=== PATIENT | male | born 1995 | race American Indian/Alaskan Native ===

== ENCOUNTER 2018-01-15 09:59 | Inpatient (IN) | payer SELFPAY ==
--- NOTE | 2018-01-15 10:23 | ED PDOC ---
Arrival/HPI - General Historian: Patient, Police <Ridge Meza - Last Filed: 01/15/18 14:59> <Susanne Ortega - Last Filed: 01/15/18 15:49> - General Time Seen by Provider: 01/15/18 10:14 - History of Present Illness Narrative History of Present Illness (Text): 01/15/18 10:20 22 y/o male, very non-compliant patient in the ER, psychiatric history admits drug abuse, limited HPI can be performed, bib police under arrest but needs psychiatric evaluation as the patient acting bizzare and agitated. Pt. stated in the ER, agitated when asking him questions, stated that he feels well, no homicidal or suicidal ideation, no auditory or visual hallucination. Pt. has no homicidal/suicidal ideation, no fall or trauma, no auditory or visual hallucination, no rash, no dizziness, no medical complaints. (Ridge Meza) Past Medical History - Provider Review Nursing Documentation Reviewed: Yes <Ridge Meza - Last Filed: 01/15/18 14:59> Family/Social History - Physician Review Nursing Documentation Reviewed: Yes Family/Social History: Unknown Family HX <Ridge Meza - Last Filed: 01/15/18 14:59> Allergies/Home Meds <Ridge Meza - Last Filed: 01/15/18 14:59> <Susanne Ortega - Last Filed: 01/15/18 15:49> Allergies/Adverse Reactions: Allergies No Known Allergies Allergy (Verified 01/15/18 12:34) Home Medications: Home Meds Medication Instructions Recorded Confirmed No Known Home Med 01/15/18 01/15/18 Review of Systems - Review of Systems Constitutional: absent: Fatigue, Fevers Eyes: absent: Vision Changes Respiratory: absent: SOB, Cough Cardiovascular: absent: Chest Pain Gastrointestinal: absent: Abdominal Pain, Nausea, Vomiting Musculoskeletal: absent: Arthralgias, Back Pain Skin: absent: Rash, Pruritis Neurological: absent: Headache Psychiatric: absent: Anxiety, Depression <Ridge Meza - Last Filed: 01/15/18 14:59> Physical Exam Temperature: Afebrile Blood Pressure: Normal Pulse: Tachycardic Respiratory Rate: Normal Appearance: Positive for: Comfortable Pain Distress: None Mental Status: Positive for: Alert and Oriented X 3, Agitated - Systems Exam Head: Present: Atraumatic, Normocephalic Pupils: Present: PERRL Extroacular Muscles: Present: EOMI Conjunctiva: Present: Normal Mouth: Present: Moist Mucous Membranes Neck: Present: Normal Range of Motion Respiratory/Chest: Present: Clear to Auscultation, Good Air Exchange. No: Respiratory Distress, Accessory Muscle Use Cardiovascular: Present: Regular Rate and Rhythm, Normal S1, S2. No: Murmurs Abdomen: No: Tenderness, Distention, Peritoneal Signs Back: Present: Normal Inspection Upper Extremity: Present: Normal Inspection. No: Cyanosis, Edema Lower Extremity: Present: Normal Inspection. No: Edema Neurological: Present: GCS=15, Speech Normal, Motor Func Grossly Intact, Gait Normal, Memory Normal Skin: Present: Warm, Dry, Normal Color. No: Rashes Psychiatric: Present: Alert, Oriented x 3, Normal Insight, Normal Concentration <Ridge Meza Q - Last Filed: 01/15/18 14:59> Vital Signs Temp Pulse Resp BP Pulse Ox 01/15/18 12:50 98 F 116/73 01/15/18 12:17 98 F 85 19 116/72 98 01/15/18 10:12 98.2 F 102 H 20 118/74 99 Medical Decision Making - Lab Interpretations I have reviewed the lab results: Yes - RAD Interpretation Hat Former: Radiologist - EKG Interpretation Interpreted by ED Physician: Yes Type: 12 lead EKG <Ridge Meza - Last Filed: 01/15/18 14:59> <Susanne Ortega - Last Filed: 01/15/18 15:49> ED Course and Treatment: 01/15/18 10:23 -labs/ua/uds -ekg -cxr -PES notified 01/15/18 11:31 -EKG: NSR @ 94 BPM, no ST elevation or depression, T wave inversion on lead V4 -Chest xray no active disease -Labs show no acute findings -CK 4546, 1000cc bolus ordered with 500cc/hr with 1000cc bag ordered -UA show no UTI -UDS show cannabinoid -PES Fidelia evaluated the patient, discussed with the psychiatrist telephone ad taker today, will need [facility] evaluation. 01/15/18 11:46 -Hospitalist paged for admission. 04/14/18 12:13 -I spoke to the hospitalist Dr. Malone, discussed about the case/labs/radiology result, agreed to admit the patient. (Ridge Meza) - Lab Interpretations Lab Results: 01/15/18 10:20 01/15/18 10:20 Lab Results 01/15/18 10:20: WBC 6.8, RBC 4.03, Hgb 12.8 L, Hct 37.0 L, MCV 91.8, MCH 31.8, MCHC 34.6, RDW 12.3, Plt Count 266, MPV 8.7, Gran % 49.6 L, Lymph % (Auto) 39.7 H, Gage % (Auto) 10.2 H, Eos % (Auto) 0.4 L, Baso % (Auto) 0.1, Gran # 3.36, Lymph # (Auto) 2.7, Gage # (Auto) 0.7 H, Eos # (Auto) 0.0, Baso # (Auto) 0.01 01/15/18 10:20: Salicylates < 1 L, Acetaminophen < 10.0 L 01/15/18 10:20: Urine Opiates Screen Negative, Urine Methadone Screen Negative, Ur Barbiturates Screen Negative, Ur Phencyclidine Scrn Negative, Ur Amphetamines Screen Negative, U Benzodiazepines Scrn Negative, U Oth Cocaine Metabols Negative, U Cannabinoids Screen Positive H 01/15/18 10:20: Sodium 141, Potassium 3.7, Chloride 105, Carbon Dioxide 24, Anion Gap 16, BUN 10, Creatinine 0.9, Est GFR ( Amer) > 60, Est GFR (Non- Af Amer) > 60, Random Glucose 78, Calcium 9.3, Total Bilirubin 0.6, AST 52, ALT 23, Alkaline Phosphatase 61, Total Creatine Kinase 4546 H, CK-MB (CK-2) 1.7, CK- MB (CK-2) % Cancelled, Total Protein 7.5, Albumin 4.5, Globulin 3.0, Albumin/ Globulin Ratio 1.5 01/15/18 10:20: Urine Color Yellow, Urine Appearance Clear, Urine pH 6.5, Ur Specific [place] 1.015, Urine Protein Negative, Urine Glucose (UA) Negative, Urine Ketones Trace H, Urine Blood Negative, Urine Nitrate Negative, Urine Bilirubin Negative, Urine Urobilinogen 1.0 H, Ur Leukocyte Esterase Negative - RAD Interpretation Radiology Orders: 01/15/18 10:25 CHEST PORTABLE [RAD] Stat HISTORY: medical clearance COMPARISON: None available FINDINGS: LUNGS: No active pulmonary disease. PLEURA: No significant pleural effusion identified, no pneumothorax apparent. CARDIOVASCULAR: Normal. OSSEOUS STRUCTURES: No significant abnormalities. VISUALIZED UPPER ABDOMEN: Normal. OTHER FINDINGS: None. IMPRESSION: No active disease. (Ridge Meza) - EKG Interpretation EKG Interpretation (Text): 01/15/18 11:31 EKG: NSR @ 94 BPM, no ST elevation or depression, T wave inversion on lead V4 ( Ridge Meza) - Medication Orders Current Medication Orders: Sodium Chloride (Sodium Chloride 0.9%) 1,000 mls @ 500 mls/hr IV .Q2H KALYAN Last Admin: 01/15/18 12:42 Dose: 500 mls/hr eMAR Start Stop Document 01/15/18 12:42 GMI (Rec: 01/15/18 12:42 GMI [id number]) Intravenous Solution Start Date 01/15/18 Start Time 12:42 Sodium Chloride (Sodium Chloride 0.9%) 1,000 mls @ 250 mls/hr IV .Q4H KALYAN Lorazepam (Ativan) 3 mg IVP Q4H PRN; Protocol PRN Reason: Agitation Pantoprazole Sodium (Protonix Inj) 40 mg IVP DAILY KALYAN Discontinued Medications Sodium Chloride (Sodium Chloride 0.9%) 1,000 mls @ 999 mls/hr IV .Q1H1M STA Stop: 01/15/18 12:30 Last Admin: 01/15/18 12:03 Dose: 999 mls/hr eMAR Start Stop Document 01/15/18 12:03 EWO (Rec: 01/15/18 12:03 [id number] Intravenous Solution Start Date 01/15/18 Start Time 12:03 End Date 01/15/18 End time 13:03 Total Infusion Time 60 Pneumococcal Polyvalent Vaccine (Pneumovax 23 Vaccine) 0.5 ml IM .ONCE ONE Stop: 01/15/18 13:53 - PA / SENIOR DATA MINING ANALYST / Resident Statement LORAINE has reviewed & agrees with the documentation as recorded. <Ridge Meza - Last Filed: 01/15/18 14:59> - PA / SENIOR DATA MINING ANALYST / Resident Statement MD/DO has reviewed & agrees with the documentation as recorded. <Susanne Ortega - Last Filed: 01/15/18 15:49> Disposition/Present on Arrival - Present on Arrival Any Indicators Present on Arrival: No History of DVT/PE: No History of Uncontrolled Diabetes: No Urinary Catheter: No History of Decub. Ulcer: No - Disposition Have Diagnosis and Disposition been Completed?: Yes Disposition Time: 11:13 Patient Plan: Admission <Ridge Meza - Last Filed: 01/15/18 14:59> <Susanne Ortega - Last Filed: 01/15/18 15:49> - Disposition Diagnosis: Psychiatric care, Rhabdomyolysis, Agitation Disposition: HOSPITALIZED Patient Problems: Current Active Problems Problem Status Onset Agitation Acute Psychiatric care Acute Rhabdomyolysis Acute Condition: STABLE
[2018-01-15 10:35] LABS: PH,URINE 6.5 (4.7-8.0); URINE BILIRUBIN NEGATIVE (NEGATIVE); URINE BLOOD NEGATIVE (NEGATIVE); URINE GLUCOSE (UA) NEGATIVE (NEGATIVE); URINE LEUKOCYTE ESTERASE NEGATIVE Leu/uL (NEGATIVE); URINE PROTEIN NEGATIVE mg/dL (<30 mg/dL)
[2018-01-15 10:36] LABS: URINE APPEARANCE CLEAR (CLEAR); URINE COLOR YELLOW (YELLOW)
[2018-01-15 10:39] LABS: BASO # 0.01 K/mm3 (0.0-2.0); BASO % 0.1 % (0.0-3.0); EOS % 0.4 % (1.5-5.0); GRAN # 3.36 (1.4-6.5); GRAN % 49.6 % (50.0-68.0); HEMOGLOBIN 12.8 g/dL (14.0-18.0); LYMPH # 2.7 (1.2-3.4); LYMPH % 39.7 % (22.0-35.0); MEAN CELL VOLUME 91.8 fl (80.0-105.0); MEAN CORPUSCULAR HEMOGLOBIN 31.8 pg (25.0-35.0); MEAN CORPUSCULAR HGB CONC 34.6 g/dl (31.0-37.0); MEAN PLATELET VOLUME 8.7 fl (7.0-11.0); MONO # 0.7 (0.1-0.6); MONO % 10.2 % (1.0-6.0); RBC 4.03 10^6/uL (3.5-6.1); RED CELL DISTRIBUTION WIDTH 12.3 % (11.5-14.5); WHITE BLOOD COUNT 6.8 10^3/ul (4.5-11.0)
[2018-01-15 10:45] LABS: ACETAMINOPHEN < 10.0 ug/ml (10.0-20.0); SALICYLATE < 1 mg/dL (2.0-20.0)
[2018-01-15 10:46] LABS: ALB/GLOB RATIO 1.5 (1.1-1.8); ALBUMIN 4.5 g/dL (3.0-4.8); ALT/SGPT 23 U/L (7-56); AST/SGOT 52 U/L (17-59); BLOOD UREA NITROGEN 10 mg/dL (7-21); CALCIUM 9.3 mg/dL (8.4-10.5); GFR AFRICAN-AMERICAN > 60; GFR NON-AFRICAN AMERICAN > 60
[2018-01-15 11:05] LABS: BARBITURATES, UR NEGATIVE (NEGATIVE); BENZODIAZEPINES, UR NEGATIVE (NEGATIVE); OPIATES, UR NEGATIVE (NEGATIVE); PHENCYCLIDINE, UR NEGATIVE (NEGATIVE)
[2018-01-15] MEDS ORDERED: Sodium Chloride 0.9% 1,000 ML IV STA (11:30)
--- NOTE | 2018-01-15 11:37 | RAD ---
HISTORY: medical clearance COMPARISON: None available FINDINGS: LUNGS: No active pulmonary disease. PLEURA: No significant pleural effusion identified, no pneumothorax apparent. CARDIOVASCULAR: Normal. OSSEOUS STRUCTURES: No significant abnormalities. VISUALIZED UPPER ABDOMEN: Normal. OTHER FINDINGS: None. IMPRESSION: No active disease.
[2018-01-15 11:53] LABS: CK-MB 1.7 ng/mL (0.0-3.6)
[2018-01-15] MEDS: Sodium Chloride 0.9% 1,000 ML IV SCH ×4 (12:42→16:42)
--- NOTE | 2018-01-15 13:00 | CP.PCM.HP ---
<Anthony Orozco - Last Filed: 01/15/18 12:51> History of Present Illness - History of Present Illness History of Present Illness: IM H&P for Hospitalist Service CC: Naveed Torrez is a 22 yo AA M with known PMH of Paranoid Schizophrenia and substance abuse who was brought in by [place] Police for PES assessment due to bizarre behavior. Pt is currently under arrest due to reported mugging and robbery as per police. HPI and PE are extremely limited, and ROS unobtainable due to patient's refusal to answer any questions or participate in physical exam. He only states, "Go away, go away," and when asked why he won't talk to examiner, replies "Because I'm trying to sleep, go away!" As per ED and Police, pt reported hx of speedball (coccaine and heroin use), last used 2 days prior. UDS in ED notable only for marijuana. Labs only notable for a CPK of > 4500, but normal renal function, and wnl potassium. EKG notable for normal intervals , questionable incomplete RBBB vs poor lead placement; no gross ST elevations/ depressions. PMH: only known is Paranoid Schizophrenia and substance abuse PSH: unobtainable Soc Hx: possibly homeless, known substance abuser, admitted to police speedball use (last 2 days ago), UDS positive for marijuana Fam Hx: unobtainable PMD: None Present on Admission - Present on Admission Any Indicators Present on Admission: No History of DVT/PE: No History of Uncontrolled Diabetes: No Urinary Catheter: No Review of Systems - Review of Systems Systems not reviewed;Unavailable: Uncooperative Past Patient History - Infectious Disease Hx of Infectious Diseases: None - Past Social History Smoking Status: Unknown If Ever Smoked - CARDIAC Hx Cardiac Disorders: No - NEUROLOGICAL Hx Neurological Disorder: No - RENAL Hx Chronic Kidney Disease: No - ENDOCRINE/METABOLIC Hx Endocrine Disorders: No - INTEGUMENTARY Hx Dermatological Problems: No - GASTROINTESTINAL Hx Gastrointestinal Disorders: No - GENITOURINARY/GYNECOLOGICAL Hx Genitourinary Disorders: No - PSYCHIATRIC Hx Substance Use: Yes - SURGICAL HISTORY Hx Surgeries: No - ANESTHESIA Hx Anesthesia: No Meds Allergies/Adverse Reactions: Allergies Allergy/AdvReac Type Severity Reaction Status Date / Time No Known Allergies Allergy Verified 01/15/18 12:34 Physical Exam - Additional Findings Additional findings: Full Physical exam unobtainable due to patient refusal to participate Awake and alert, tracking staff throughout room visually Restless and constantly shaking, but no gross tremor or seizure-like activity appreciated No scleral icterus or conjunctival injection appreciated No grossly tachypnic or gasping for air Attempting to move all extremities spontaneously, restricted due to handcuffed to bed No gross trauma appreciated, Head is NC/AT No asymmetrical tone of extremities appreciated, no gross signs of wasting Results - Vital Signs Recent Vital Signs: Last Vital Signs Temp 98 F 01/15/18 12:50 Pulse 85 01/15/18 12:17 Resp 19 01/15/18 12:17 BP 116/73 01/15/18 12:50 Pulse Ox 98 01/15/18 12:17 - Labs Result Diagrams: 01/15/18 10:20 01/15/18 10:20 Assessment & Plan - Assessment and Plan (Free Text) Assessment: This is a 22 yo AA M with known PMH of Paranoid Schizophrenia and substance abuse who was brought in by [employer] for PES assessment due to bizarre behavior. He is being admitted for rhabdomyolysis while pending PES screening; he is also under arrest by [employer] for robbery. Plan: 1) Rhabdomyolysis -2/2 substance abuse vs dehydration vs trauma vs unclear etiology -CPK: 4546 -gross physical exam not notable for trauma, but unable to perform full survey due to pt refusal to allow physical exam -reports recent speedball (heroin and cocaine) use, 2 days prior, but only marijuana positive on UDS -BUN/Cr 10/0.9, not suggestive of gross dehydration, and doesn't appear clinically dehydrated -received 1L NS bolus in ED, now receiving another 1L at 500cc/hr, can continue at 250cc/hr afterwards -potassium low normal at 3.7, Cr wnl, and EKG not suggestive of acute issue, so doesn't need telemetry monitoring at this time or serial BMPs; can recheck labs in AM and obtain EKG at that time -I's and O's to monitor urine output, if becomes oliguric/anuric can consider stat labs to assess renal function and potassium at that time -Renal diet -Repeat CPK in AM to reassess, ensure down-trending, goal for d/c < 2000 2) Hx Paranoid schizophrenia with hx substance abuse -brought by police to [facility] for PES screen due to bizzare behavior -reportedly seen here in 5B unit previously, unclear what medications discharged on since no prior records found in charting -Psych (Dr. Garcia) consulted, appreciate their recs, defer to them for medication management -Ativan 3mg IVP q4 PRN for agitation pending Psych recs -unclear if SI/HI, but given recent reported violent behavior (mugging/robbery) and prior psych hx, 1:1 for obs ordered Dispo: Med/Surg obs, pending recheck of CPK in AM after aggressive IV hydration , pending Psych eval and recs, possible d/c tmr FEN: Renal Diet, NS 250cc/hr Access: Peripheral IV Consults: Psych Ppx: Protonix for GI, SCDs for DVT Patient reviewed and discussed with attending, Dr. Malone. Decision To Admit - Pt Status Changed To: Hospital Disposition Of: Observation - . Bed Request Type: Med/Surg <My Malone - Last Filed: 01/15/18 14:58> Results - Vital Signs Recent Vital Signs: Last Vital Signs Temp 98 F 01/15/18 13:24 Pulse 102 H 01/15/18 13:24 Resp 20 01/15/18 13:24 BP 116/73 01/15/18 13:24 Pulse Ox 98 01/15/18 12:17 - Labs Result Diagrams: 01/15/18 10:20 01/15/18 10:20 Attending/Attestation - Attestation I have personally seen and examined this patient.: Yes I have fully participated in the care of the patient.: Yes I have reviewed all pertinent clinical information: Yes Notes (Text): 01/15/18 14:54 22 year old male with past medical history of paranoid schizophrenia and substance abuse who is brought in by police for bizzare behavior. He was found to have rhabdomyolysis with CPK of 4546 and started on IVF. Utox is positive for cannabinoids. Continue with 1:1 for observation. Psychiatry evaluation is requested. Will continue with fluids and repeat labs in AM. My Malone MD Hospitalist.
[2018-01-15] MEDS ORDERED: Sodium Chloride 0.9% 1,000 ML IV SCH (13:15)
[2018-01-15 13:51] VITALS: BMI 22.1
[2018-01-15] MEDS ORDERED: Pneumococcal 23-Valent Vaccine IM ONE (13:52)
[2018-01-16] MEDS: Sodium Chloride 0.9% 1,000 ML IV SCH ×2 (01:45→17:40)
[2018-01-16 07:11] LABS: BASO # 0.01 K/mm3 (0.0-2.0); BASO % 0.2 % (0.0-3.0); EOS # 0.1 (0.0-0.7); GRAN # 1.44 (1.4-6.5); GRAN % 33.7 % (50.0-68.0); LYMPH # 2.2 (1.2-3.4); LYMPH % 51.2 % (22.0-35.0); MEAN CELL VOLUME 93.4 fl (80.0-105.0); MEAN CORPUSCULAR HEMOGLOBIN 31.6 pg (25.0-35.0); MEAN CORPUSCULAR HGB CONC 33.8 g/dl (31.0-37.0); MEAN PLATELET VOLUME 8.6 fl (7.0-11.0); MONO # 0.5 (0.1-0.6); MONO % 11.9 % (1.0-6.0); RBC 3.48 10^6/uL (3.5-6.1); RED CELL DISTRIBUTION WIDTH 12.5 % (11.5-14.5); WHITE BLOOD COUNT 4.3 10^3/ul (4.5-11.0)
[2018-01-16 07:17] LABS: TROPONIN I < 0.01 ng/mL
[2018-01-16 07:24] LABS: ALB/GLOB RATIO 1.2 (1.1-1.8); ALBUMIN 3.2 g/dL (3.0-4.8); ALT/SGPT 22 U/L (7-56); AST/SGOT 44 U/L (17-59); BLOOD UREA NITROGEN 12 mg/dL (7-21); CALCIUM 8.3 mg/dL (8.4-10.5); GFR AFRICAN-AMERICAN > 60; GFR NON-AFRICAN AMERICAN > 60
[2018-01-16 08:17] LABS: CK-MB 0.8 ng/mL (0.0-3.6)
--- NOTE | 2018-01-16 09:12 | CARD ---
APPROVED REPORT EKG Measurement Heart [id number] <Conclusion> Normal sinus rhythm with sinus arrhythmia Incomplete right bundle branch block Nonspecific T wave abnormality LVH by voltage
--- NOTE | 2018-01-16 09:26 | CARD ---
APPROVED REPORT EKG Measurement Heart [id number] <Conclusion> Normal sinus rhythm with sinus arrhythmia LVH NSSTW changes No change
--- NOTE | 2018-01-16 16:33 | CP.PCM.PN ---
Subjective - Date & Time of Evaluation Date of Evaluation: 01/16/18 Time of Evaluation: 16:30 - Subjective Subjective: Patient seen and examined at bedside. 1 to 1 sitter in room, patient with two point restraints in place. Patient with minimal answering to interview questions. Denies chest pain, shortness of breath, abdominal pain, fever, chills. Denies suicidal ideation. Objective - Vital Signs/Intake and Output Vital Signs (last 24 hours): Temp Pulse Resp BP Pulse Ox 97.9 F 88 20 120/71 96 01/15/18 22:00 01/15/18 22:00 01/15/18 22:00 01/15/18 22:00 01/15/18 22:00 Intake and Output: 01/16/18 01/16/18 06:59 18:59 Intake Total 240 1500 Output Total 275 1850 Balance -35 -350 - Medications Medications: Current Medications Sodium Chloride (Sodium Chloride 0.9%) 1,000 mls @ 500 mls/hr IV .Q2H [facility] Last Admin: 01/15/18 16:42 Dose: Not Given Sodium Chloride (Sodium Chloride 0.9%) 1,000 mls @ 250 mls/hr IV .Q4H [facility] Last Admin: 01/16/18 01:45 Dose: 250 mls/hr Lorazepam (Ativan) 2 mg IVP Q6H PRN; Protocol PRN Reason: Agitation Pantoprazole Sodium (Protonix Inj) 40 mg IVP DAILY [facility] Last Admin: 01/16/18 10:03 Dose: 40 mg Quetiapine Fumarate (Seroquel) 25 mg PO BID [facility] PRN Reason: Protocol Quetiapine Fumarate (Seroquel) 50 mg PO HS [facility] PRN Reason: Protocol - Labs Labs: 01/16/18 06:00 01/16/18 06:00 - Head Exam Head Exam: ATRAUMATIC, NORMAL INSPECTION, NORMOCEPHALIC - Eye Exam Eye Exam: EOMI, PERRL - Respiratory Exam Respiratory Exam: absent: Accessory Muscle Use, Prolonged Expiratory Phase, Wheezes Additional comments: patient refusing exam respiratory rate 21, non agitated - Cardiovascular Exam Additional comments: patient refusing exam, HR normal range per chart - GI/Abdominal Exam Additional comments: refused exam - Extremities Exam Extremities Exam: absent: Pedal Edema, Tenderness - Neurological Exam Neurological Exam: Alert, Awake - Psychiatric Exam Psychiatric exam: Agitated - Skin Skin Exam: Dry, Warm Assessment and Plan - Assessment and Plan (Free Text) Assessment: 22 yo AA male with known PMH of Paranoid Schizophrenia and substance abuse who was brought in by [place] [employer] for PES assessment due to bizarre behavior. Patient found to have elevated CPK and admitted for rhabdomyolysis Plan: Rhabdomyolysis Details: - Etiology substance abuse vs. dehydration vs. trauma - Patient denies traums, reports recent heroin and cocaine use 2 days prior to presentation - elevated CPK on admission 4546, today ~2500 - IVF 1 Liter NS in ED, IVF continuous Plan: - Renal diet - I and O's - Trend CPK - IVF continued - F/u labs Paranoid Schizophrenia with history of substance abuse Details: - History of psych problems in past - Pt denies SI/HI today - Unknown visual or auditory hallucinations - UDS positive for cannabinoids Plan: - Psych consulted, f/u recs - Seroguel - Ativan 2mg IVP Q6H for agitation - Continue 1:1 observation GI/DVT ppx: Protonix, SCDs Case and plan discussed with attending, Dr. Faisal Madera/ Chip
--- NOTE | 2018-01-16 23:36 | CON ---
HISTORY OF PRESENT ILLNESS: The patient is a 22-year-old single -Romanian male with a history of drug abuse and unclear psychiatric history. He was brought into the ER by police under arrest for mugging and robbery. Noted to be agitated and uncooperative while he was in the ER and the provider had recommended the patient to be cleaned by [facility], however, he ended up being medically admitted due to elevated CPK level. I reviewed ER notes as well as [address] notes [address] Dr. Malone, it does looks like Dr. Malone received information that the patient has a history of paranoid schizophrenia; however, this information was not available to this provider. I reviewed [facility] access records and he has not been seen or hospitalized at a [facility] on prior occasions,. It was possible that he is hospitalized at [facility] at [facility] in the past; however, I do not have access to these records any longer. Regardless, I met with him at bedside this morning and he is a little bit more cooperative and calm and although he is reluctant to engage in a conversation with me and I need to repeat my question multiple times. He is oddly related. He does not appear to be actively hallucinating. He is enjoying his breakfast is taking with him. He denies depression. He denies hallucinations. He tells me he is doing well. He knows it is January 2018, he is under arrest, and he is at [facility]. He denies having any thoughts to harm anybody or harm himself. Thus far, he has been cooperative with medical procedures. He is not acutely psychotic, though as noted he is oddly related, preoccupied, and a little bit guarded with his responses. Currently, handcuffs to the bed per police orders due to being currently under arrest robbery. Labs and vital signs were reviewed by this provider. Of note, the patient's UDS is only positive for marijuana, although it is possible that it was a substance that does not show up on drug screening, which has been the case very recently in [place] with formaldehyde. PSYCHIATRIC HISTORY: Largely unknown, the patient is reluctant in regards his psychiatric history, but admits that he did see a psychiatrist in the past. In regarding psychiatric hospitalizations, he used to be mysterious and states "not sure". Denies prior suicide attempts and cannot recall if he has even been on any medication trial. SOCIAL HISTORY: The patient reports he was born and raised in [place], he is single, he has no children. He lives with a roommate. He denies substance use, however, this is untrue as his UDS is positive for marijuana and he reports that he currently is unemployed. Of note, he is currently under arrest for robbery and mugging. IMPRESSION: Paranoid schizophrenia by history, rule out exacerbation of substance-induced psychiatric disorder, substance-induced mood disorder. The patient definitely abuses marijuana, I cannot rule out this was not related to formaldehyde, a substance that would not show up on typical direct screening. RECOMMENDATIONS: The patient is apparently in much better control, though oddly related, he does not present as an acute psychiatric risk if he is booked into longterm at this time and in that case, he is psychiatrically cleared once he is medically cleared to go to longterm; however, as he is no longer under arrest, I do recommend psychiatric admission. This will be beneficial for him, but as right now since he is currently under arrest and he is not causing any difficulty on the unit, he is much less agitated, calmer, superficially cooperating in interviews and medical protocol, there appears to be no major risks at this time. The robbery and mugging are not indicative of paranoid schizophrenic general operandi, they generally are indicative as antisocial types and I cannot comment on when antisocial will do, but he likely did not mug or sony somebody because he was under some sort of paranoid delusions. He does not present acutely delusional at this time, though I cannot rule out very insignificant chance that this is the case. Psychiatrist will continue to follow up, make ensure that the patient remains with improved control and coherency. Dr. Rock will follow the patient on 01/17/2018. Salbador Garcia MD
[2018-01-17] MEDS: Sodium Chloride 0.9% 1,000 ML IV SCH ×3 (03:02→17:28)
[2018-01-17 08:55] LABS: HEMOGLOBIN 11.3 g/dL (14.0-18.0); MEAN CELL VOLUME 92.6 fl (80.0-105.0); MEAN CORPUSCULAR HEMOGLOBIN 32.1 pg (25.0-35.0); MEAN CORPUSCULAR HGB CONC 34.7 g/dl (31.0-37.0); MEAN PLATELET VOLUME 9.1 fl (7.0-11.0); RBC 3.52 10^6/uL (3.5-6.1); RED CELL DISTRIBUTION WIDTH 12.2 % (11.5-14.5); WHITE BLOOD COUNT 4.7 10^3/ul (4.5-11.0)
[2018-01-17 09:05] LABS: ALB/GLOB RATIO 1.2 (1.1-1.8); ALBUMIN 3.1 g/dL (3.0-4.8); ALT/SGPT 27 U/L (7-56); AST/SGOT 32 U/L (17-59); BLOOD UREA NITROGEN 7 mg/dL (7-21); CALCIUM 8.6 mg/dL (8.4-10.5); GFR AFRICAN-AMERICAN > 60; GFR NON-AFRICAN AMERICAN > 60
[2018-01-17 09:22] LABS: CK-MB 0.4 ng/mL (0.0-3.6)
[2018-01-17] MEDS: Divalproex 500 mg DR(BID formulation) PO SCH ×2 (10:33→17:28)
[2018-01-17] MEDS: OLANZapine 5 mg Disintegrating Tab PO SCH ×3 (10:33→22:21)
--- NOTE | 2018-01-17 12:14 | CP.PCM.PN ---
<ChipMarcelino - Last Filed: 01/17/18 14:05> Subjective - Date & Time of Evaluation Date of Evaluation: 01/17/18 Time of Evaluation: 12:10 - Subjective Subjective: Patient seen and evaluated this AM. Patient refusing interview questioning and exam at this time. Patient denies chest pain, shortness of breath, abdominal pain. Objective - Vital Signs/Intake and Output Vital Signs (last 24 hours): Temp Pulse Resp BP Pulse Ox 97.9 F 53 L 19 185/82 H 98 01/17/18 06:00 01/17/18 06:00 01/17/18 06:00 01/17/18 06:00 01/17/18 06:00 Intake and Output: 01/17/18 01/17/18 06:59 18:59 Intake Total 180 Output Total 2250 Balance -2070 - Medications Medications: Current Medications Benztropine Mesylate (Cogentin) 1 mg PO BID [facility] Last Admin: 01/17/18 10:33 Dose: 1 mg Divalproex Sodium (Depakote Dr(*Bid*)) 500 mg PO BID [facility] Last Admin: 01/17/18 10:33 Dose: 500 mg Sodium Chloride (Sodium Chloride 0.9%) 1,000 mls @ 250 mls/hr IV .Q4H [facility] Last Admin: 01/17/18 03:03 Dose: 250 mls/hr Lorazepam (Ativan) 2 mg IVP Q6H PRN; Protocol PRN Reason: Agitation Lorazepam (Ativan) 1 mg PO BID [facility] PRN Reason: Protocol Last Admin: 01/17/18 10:33 Dose: 1 mg Olanzapine (Zyprexa Zydis) 5 mg PO BID [facility] PRN Reason: Protocol Last Admin: 01/17/18 10:33 Dose: 5 mg Olanzapine (Zyprexa Zydis) 5 mg PO HS [facility] PRN Reason: Protocol Pantoprazole Sodium (Protonix Inj) 40 mg IVP DAILY [facility] Last Admin: 01/17/18 09:11 Dose: Not Given - Labs Labs: 01/17/18 08:30 01/17/18 08:30 - Skin Skin Exam: Dry, Warm - Additional Findings Additional findings: Patient refusing physical exam at this time. Patient appears stated age. No acute distress. Assessment and Plan - Assessment and Plan (Free Text) Assessment: 22 yo AA male with known PMH of Paranoid Schizophrenia and substance abuse who was brought in by [place] [employer] for PES assessment due to bizarre behavior. Patient found to have elevated CPK and admitted for rhabdomyolysis Plan: Patient is medically cleared at this point for transfer per psychiatry Rhabdomyolysis Details: - Etiology substance abuse vs. dehydration vs. trauma - Patient denies traums, reports recent heroin and cocaine use 2 days prior to presentation - elevated CPK on admission 4546, ~2500, ~1300 today improvement - IVF 1 Liter NS in ED, IVF continuous - Patient showing clinical improvement Plan: - Renal diet - I and O's - IVF continued - Patient showing clinical and lab work improvement - Patient is medically cleared for transfer per psychiatry Paranoid Schizophrenia with history of substance abuse Details: - History of psych problems in past - Pt denies SI/HI today - Unknown visual or auditory hallucinations - UDS positive for cannabinoids Plan: - Psych consulted, f/u recs - Seroguel - Ativan 2mg IVP Q6H for agitation - Continue 1:1 observation GI/DVT ppx: Protonix, SCDs Case and plan discussed with attending Kofi Saunders <Spike Martinez - Last Filed: 01/17/18 17:10> Objective - Vital Signs/Intake and Output Vital Signs (last 24 hours): Temp Pulse Resp BP Pulse Ox 99 F 67 18 135/82 99 01/17/18 14:00 01/17/18 14:00 01/17/18 14:00 01/17/18 14:00 01/17/18 14:00 Intake and Output: 01/17/18 01/17/18 06:59 18:59 Intake Total 180 640 Output Total 2250 3600 Balance -2070 -2960 - Medications Medications: Current Medications Benztropine Mesylate (Cogentin) 1 mg PO BID [facility] Last Admin: 01/17/18 10:33 Dose: 1 mg Divalproex Sodium (Depakote Dr(*Bid*)) 500 mg PO BID [facility] Last Admin: 01/17/18 10:33 Dose: 500 mg Sodium Chloride (Sodium Chloride 0.9%) 1,000 mls @ 250 mls/hr IV .Q4H [facility] Last Admin: 01/17/18 03:03 Dose: 250 mls/hr Lorazepam (Ativan) 2 mg IVP Q6H PRN; Protocol PRN Reason: Agitation Lorazepam (Ativan) 1 mg PO BID [facility] PRN Reason: Protocol Last Admin: 01/17/18 10:33 Dose: 1 mg Olanzapine (Zyprexa Zydis) 5 mg PO BID [facility] PRN Reason: Protocol Last Admin: 01/17/18 10:33 Dose: 5 mg Olanzapine (Zyprexa Zydis) 5 mg PO HS [facility] PRN Reason: Protocol Pantoprazole Sodium (Protonix Inj) 40 mg IVP DAILY [facility] Last Admin: 01/17/18 09:11 Dose: Not Given - Labs Labs: 01/17/18 08:30 01/17/18 08:30 Attending/Attestation - Attestation I have personally seen and examined this patient.: Yes I have fully participated in the care of the patient.: Yes I have reviewed all pertinent clinical information, including history, physical exam and plan: Yes Notes (Text): 01/17/18 17:07 Medical record note made by the resident after discussion with my direction and input after the patient was personally seen and examined by me. I have reviewed the chart and agree that the record accurately reflects by personal performance of the history, physical exam, data review, and medical decision-making, in the course for the patient. I have also personally directed the plan of care. 22 yo AA male with known PMH of Paranoid Schizophrenia and substance abuse who was brought in by [place] [employer] for PES assessment due to bizarre behavior was found to have rhabdomyolysis.CK level is coming dowm.Renal functions are stable.Patient is cleared medically, awaiting [facility] [place]. Case was discussed with .
--- NOTE | 2018-01-17 13:26 | CP.PCM.PCO ---
Physician Communication Note - Physician Communication Note Physician Communication Note: Rhabdomylosis is improving, encourage oral hydration,cleared medically
--- NOTE | 2018-01-17 15:06 | PN ---
DATE: SUBJECTIVE: The patient was seen by Dr. Garcia, over the weekend and no medications were started. The patient was brought in for evaluation of bizarre and agitated behavior in the emergency room. The patient had signs of rhabdomyolysis and that is why the patient was admitted on the medical side. The patient presented to be oddly related and that is why psychiatrist was involved. The patient was seen by Dr. Garcia over the weekend. This senior copywriter is taking over. The patient was seen and examined. The patient is under arrest for robbery. The patient is very familiar to this senior copywriter from the previous admission and to the psychiatric inpatient unit, which took place here in [place] under the name of [place] and the patient was admitted in 07/2017. The patient has long history of mental illness, paranoid schizophrenia, chronic noncompliance with the medication, poor family dynamics. The patient was seen by PACT team in the community. The patient has dysfunctional family and multiple kids in the house. The patient has tendency of disappearing and the patient has tendency of wandering on the streets. The patient has tendency of being noncompliant to medications. Going back to the patient's presentation, the patient was agitated earlier and needed to be medicated. The patient is on one to one. Still under arrest and police is sitting outside. The patient was seen and examined. The patient is non-cooperative with the interview. No eye contact, poor hygiene. The patient seems to be restless. The patient said "I am not doing good. I do not want to talk." This senior copywriter reviewed the previous admission to the psychiatric inpatient unit and PACT team was contacted. The patient gave permission to speak to the PACT team. As per team supervisor, Bailey hoyt nurse, the patient was noncompliant with the medications and the patient got injection of Invega 3 months. The last time was given 3 weeks ago. The patient was on Depakote 1500 daily and Cogentin 1 mg twice a day. The patient was at [facility] last week, but was cleared by psychiatric bed then. PHYSICAL EXAMINATION: VITAL SIGNS: Going back to the current presentation, vital signs seems to be stable. Temperature 98.4, pulse is 71, blood pressure 126/78, respirations 20, oxygen saturation is 98. MEDICATIONS: Reviewed, Ativan, Protonix, Seroquel 25 mg twice a day, Seroquel 50 mg at the nighttime, sodium chloride. LABORATORY DATA: Reviewed. Hemoglobin and hematocrit 11.3 and 32.6. Creatine kinase is going down 1300 today. Urinalysis seems to be within normal limits, but ketones positive, cannabis positive in the urine. The patient has history of using synthetic drugs. MENTAL STATUS EXAMINATION: As this senior copywriter described above. The patient was uncooperative with the interview. Patient's personal hygiene is poor. The patient appears to be oddly related. No eye contact. Mood described "I do not feel good." Affect was flat. The patient's thoughts are disorganized. The patient reported that he has multiple people living in his head. As per staff, the patient was agitated earlier and needed to be medicated. Insight and judgment are very poor. Impulses are unpredictable. IMPRESSION: As per history, the patient has paranoid schizophrenia, chronic noncompliance with the medications. The patient has history of synthetic drug use and marijuana use. PLAN: The patient is currently under police custody for robbery. Invega shot q.3 months, last dose was given 3 weeks ago. The patient was on Depakote 1500 mg daily and Cogentin 1 mg twice a day. The patient was seen by PACT team in the community. This senior copywriter spoke to Dr. Martinez and let him know that true name for this patient is not Stanton, but Ricci. Plan is going to be screening for involuntary commitment. If the patient will be not accepted, the patient needs to be discharged under police custody with a plan to be seen by forensic psychiatrist. Meanwhile, this senior copywriter will change Seroquel to Zyprexa Zydis 5 mg three times a day, Depakote will be resumed with the Ativan. We will follow up and advise accordingly. Management of this case took more than 30 minutes. Thank you very much for letting me participate in care of your patient. Elma Rock MD
[2018-01-18] MEDS: Divalproex 500 mg DR(BID formulation) PO SCH ×2 (10:31→18:03)
[2018-01-18] MEDS: OLANZapine 5 mg Disintegrating Tab PO SCH ×3 (10:35→21:50)
[2018-01-18 11:41] VITALS: RESP 20; O2SAT 98
[2018-01-18] MEDS: Sodium Chloride 0.9% 1,000 ML IV SCH ×2 (12:24→18:04)
--- NOTE | 2018-01-18 17:04 | PN ---
DATE: But this expert medical writer would like to emphasize the fact that the patient's true name is not Stanton, but Ricci. SUBJECTIVE: The patient has long history of mental illness, chronic noncompliance with the medications and followup appointments. The patient is on injectable form of Abilify q.3 months. This expert medical writer attempted to speak to the patient's PACT team, which visited him on the medical side. The patient presented to be disorganized. Does not make much sense. The patient also not willing to provide any information and laying down with his eyes closed and covering his face with a blanket. The patient is under arrest for robbery and police officers are next to him. There are no changes with the patient's presentation. The patient is disorganized. Does not make much sense. No eye contact, poor personal hygiene. At the same time, no aggression, no agitation. The patient is compliant with the medications. PHYSICAL EXAMINATION: VITAL SIGNS: Stable. Temperature 98, pulse is 54, blood pressure 111/75, respiration 20, oxygen saturation is 98. MEDICATIONS: Reviewed. Cogentin 1 mg twice a day, Depakote 500 mg twice a day, Ativan 2 mg IV push every 6 hours as needed for agitation, Ativan 1 mg twice a day scheduled, Zyprexa Zydis 5 mg twice a day and at the nighttime, Protonix 40 mg and sodium chloride. LABORATORY DATA: Reviewed. Most recent was from yesterday. Based on the medical team report, the patient is medically stable and this expert medical writer recommended [facility] screening process. The patient is still waiting. MENTAL STATUS EXAMINATION: As this expert medical writer described above. The patient presented with poor personal hygiene. No eye contact. Speech was mumbling. Mood described as okay. Affect is labile. The patient is giggling inappropriately. At the same time, the patient has psychosis. For example, the patient was making statements that he has lot of kids, but when was asked where are the kids, the patient said that in my balls. The patient also was internally preoccupied talking to the people who are not there. Insight and judgment seems to be severely impaired. Impulses are unpredictable. This expert medical writer had prolonged conversation with the PACT team yesterday with Bailey. Based on report, the patient has chronic noncompliance with the medications. Very poor insight. PACT team needed to marlin the patient in the community because pt has no stable home, pt also has tendency of wondering in the community, not compliance with medications, and follow up appointments, pt also using drugs including synthetic drugs. PLAN: Continue current management. Continue current medications. The patient is awaiting for [facility] evaluation. The patient required further hospitalization, but the patient does not meet the criteria for voluntary unit because the patient is under arrest. If the patient will be not accepted by [facility], recommendation is going to be released under police custody with a plan to have forensic psychiatrist evaluation as well as continue medication what the patient currently is on. Zyprexa zydis 5mg twice a day as well as at the nighttime. The patient also needs to be continued on Ativan 1 mg three times a day. The patient should be continued on Depakote 500 mg twice a day. We will follow up and advise accordingly. Should you have any questions, give me a call back. Elma Rock MD MTDRashi
--- NOTE | 2018-01-18 17:12 | CP.PCM.PN ---
<Marcelino Saunders - Last Filed: 01/18/18 19:44> Subjective - Date & Time of Evaluation Date of Evaluation: 01/18/18 Time of Evaluation: 17:09 - Subjective Subjective: Patient refusing interview and physical exam at this time. no acute events overnight. Patient awaiting [facility] [place] screening[place]ance. Objective - Vital Signs/Intake and Output Vital Signs (last 24 hours): Temp Pulse Resp BP Pulse Ox 98 F 54 L 20 111/75 98 01/18/18 06:00 01/18/18 06:00 01/18/18 06:00 01/18/18 06:00 01/18/18 06:00 Intake and Output: 01/18/18 01/18/18 06:59 18:59 Intake Total 900 Output Total 4575 Balance -3675 - Medications Medications: Current Medications Benztropine Mesylate (Cogentin) 1 mg PO BID [facility] Last Admin: 01/18/18 10:31 Dose: 1 mg Divalproex Sodium (Depakote Dr(*Bid*)) 500 mg PO BID [facility] Last Admin: 01/18/18 10:31 Dose: 500 mg Sodium Chloride (Sodium Chloride 0.9%) 1,000 mls @ 250 mls/hr IV .Q4H [facility] Last Admin: 01/18/18 12:24 Dose: 250 mls/hr Lorazepam (Ativan) 2 mg IVP Q6H PRN; Protocol PRN Reason: Agitation Lorazepam (Ativan) 1 mg PO BID [facility] PRN Reason: Protocol Last Admin: 01/18/18 10:32 Dose: 1 mg Olanzapine (Zyprexa Zydis) 5 mg PO BID [facility] PRN Reason: Protocol Last Admin: 01/18/18 10:35 Dose: 5 mg Olanzapine (Zyprexa Zydis) 5 mg PO HS [facility] PRN Reason: Protocol Last Admin: 01/17/18 22:21 Dose: 5 mg Pantoprazole Sodium (Protonix Ec Tab) 40 mg PO ACB [facility] - Labs Labs: 01/17/18 08:30 01/17/18 08:30 - Additional Findings Additional findings: Patient refusing physical exam Assessment and Plan - Assessment and Plan (Free Text) Assessment: 22 yo AA male with known PMH of Paranoid Schizophrenia and substance abuse who was brought in by [place] [employer] for PES assessment due to bizarre behavior. Patient found to have elevated CPK and admitted for rhabdomyolysis Plan: Patient is medically cleared at this point for transfer per psychiatry Rhabdomyolysis Details: - Etiology substance abuse vs. dehydration vs. trauma - Patient denies traums, reports recent heroin and cocaine use 2 days prior to presentation - elevated CPK on admission 4546, ~2500, ~1300 today improvement - Patient showing clinical improvement - Patient refusing blood draws Plan: - Renal diet - I and O's - IVF continued - Patient is medically cleared for transfer per psychiatry Paranoid Schizophrenia with history of substance abuse Details: - History of psych problems in past - Pt denies SI/HI today - Unknown visual or auditory hallucinations - UDS positive for cannabinoids Plan: - Psych consulted, f/u recs - Seroguel - Ativan 2mg IVP Q6H for agitation GI/DVT ppx: Protonix, SCDs Case and plan discussed with attending Kofi Saunders <Spike Martinez - Last Filed: 01/19/18 13:50> Objective - Vital Signs/Intake and Output Vital Signs (last 24 hours): Temp Pulse Resp BP Pulse Ox 98.3 F 65 20 130/69 98 01/19/18 06:00 01/19/18 06:00 01/19/18 06:00 01/19/18 06:00 01/19/18 06:00 Intake and Output: 01/19/18 01/19/18 06:59 18:59 Intake Total 1140 840 Output Total 2475 1300 Balance -1335 -460 - Labs Labs: 01/17/18 08:30 01/17/18 08:30 Attending/Attestation - Attestation I have personally seen and examined this patient.: Yes I have fully participated in the care of the patient.: Yes I have reviewed all pertinent clinical information, including history, physical exam and plan: Yes Notes (Text): 01/19/18 13:49 Medical record note made by the resident after discussion with my direction and input after the patient was personally seen and examined by me. I have reviewed the chart and agree that the record accurately reflects by personal performance of the history, physical exam, data review, and medical decision-making, in the course for the patient. I have also personally directed the plan of care. 22 yrs male with known PMH of Paranoid Schizophrenia and substance abuse who was brought in by [place] [employer] for PES assessment due to bizarre behavior was found to have rhabdomyolysis.CK level has improved. coming .Renal functions are stable.Patient is cleared medically, [place] [facility] [place].
[2018-01-18 20:15] LABS: CK-MB < 0.2 ng/mL (0.0-3.6)
[2018-01-19] MEDS ORDERED: Pantoprazole 40 mg EC Tab PO SCH (07:30)
[2018-01-19 09:08] VITALS: BP 130/69; PULSE 65; TEMP 98.3
[2018-01-19] MEDS: Divalproex 500 mg DR(BID formulation) PO SCH (09:44)
[2018-01-19] MEDS: OLANZapine 5 mg Disintegrating Tab PO SCH (09:44)
--- NOTE | 2018-01-19 13:41 | PN ---
DATE: FOLLOWUP NOTE SUBJECTIVE: The patient was evaluated by [facility], was not accepted under involuntary status. The patient is under police custody. The patient presented to feel to be psychotic, disorganized, but no aggression or agitation. Has fair appetite as well as sleep. Vital signs are stable from the medical perspective. Based on the medical evaluation, the patient is stable to be discharged back to the correctional facility. This life underwriter left prescriptions for all of his current medications, Zyprexa, Depakote, Cogentin as well as Ativan 2-week supply. The patient needs to be seen by a psychiatrist at the correctional facility. Meanwhile, there is no other option to keep the patient to the hospital. The patient needs to go back to longterm under police custody. MENTAL STATUS EXAMINATION: The patient presented to be disorganized, apathetic, withdrawn, not willing to participate in interview, but the patient is internally preoccupied, responding to internal stimuli. Insight and judgment are poor. Impulses are well controlled. IMPRESSION: As per history, schizoaffective disorder, rule out schizophrenia. The patient has history of polysubstance abuse and dependence including synthetic drug use. PLAN: Prescriptions for all of the psychotropic medications provided to the patient, 2-week supply, no refills. The patient needs to be seen by psychiatrist in the correctional facility. The patient is to take medication as prescribed. This life underwriter will sign off. Should you have any questions, give me a call back. Elma Rock MD
--- NOTE | 2018-01-19 13:51 | CP.PCM.DIS ---
<Marcelino Saunders - Last Filed: 01/19/18 20:29> Provider - Provider Date of Admission: 01/16/18 16:27 Attending physician: Spike Martinez MD Primary care physician: NO PRIMARY CARE PROVIDER Consults: Psych: Dr. Wills Time Spent in preparation of Discharge (in minutes): 35 Hospital Course - Lab Results Lab Results: Most Recent Lab Values WBC 4.7 10^3/ul (4.5-11.0) 01/17/18 08:30 RBC 3.52 10^6/uL (3.5-6.1) 01/17/18 08:30 Hgb 11.3 g/dL (14.0-18.0) L 01/17/18 08:30 Hct 32.6 % (42.0-52.0) L 01/17/18 08:30 MCV 92.6 fl (80.0-105.0) 01/17/18 08:30 MCH 32.1 pg (25.0-35.0) 01/17/18 08:30 MCHC 34.7 g/dl (31.0-37.0) 01/17/18 08:30 RDW 12.2 % (11.5-14.5) 01/17/18 08:30 Plt Count 229 10^3/uL (120.0-450.0) 01/17/18 08:30 MPV 9.1 fl (7.0-11.0) 01/17/18 08:30 Gran % 33.7 % (50.0-68.0) L 01/16/18 06:00 Lymph % (Auto) 51.2 % (22.0-35.0) H 01/16/18 06:00 [place] % (Auto) 11.9 % (1.0-6.0) H 01/16/18 06:00 Eos % (Auto) 3.0 % (1.5-5.0) 01/16/18 06:00 Baso % (Auto) 0.2 % (0.0-3.0) 01/16/18 06:00 Gran # 1.44 (1.4-6.5) 01/16/18 06:00 Lymph # (Auto) 2.2 (1.2-3.4) 01/16/18 06:00 [place] # (Auto) 0.5 (0.1-0.6) 01/16/18 06:00 Eos # (Auto) 0.1 (0.0-0.7) 01/16/18 06:00 Baso # (Auto) 0.01 K/mm3 (0.0-2.0) 01/16/18 06:00 Sodium 143 mmol/L (132-148) 01/17/18 08:30 Potassium 3.8 mmol/L (3.6-5.0) 01/17/18 08:30 Chloride 112 mmol/L (98-107) H 01/17/18 08:30 Carbon Dioxide 23 mmol/L (21-33) 01/17/18 08:30 Anion Gap 11 (10-20) 01/17/18 08:30 BUN 7 mg/dL (7-21) 01/17/18 08:30 Creatinine 0.8 mg/dl (0.8-1.5) 01/17/18 08:30 Est GFR ( Amer) > 60 01/17/18 08:30 Est GFR (Non-Af Amer) > 60 01/17/18 08:30 Random Glucose 94 mg/dL (70-110) 01/17/18 08:30 Calcium 8.6 mg/dL (8.4-10.5) 01/17/18 08:30 Phosphorus 3.4 mg/dL (2.5-4.5) 01/16/18 06:00 Magnesium 1.8 mg/dL (1.7-2.2) 01/16/18 06:00 Total Bilirubin 0.3 mg/dL (0.2-1.3) 01/17/18 08:30 AST 32 U/L (17-59) 01/17/18 08:30 ALT 27 U/L (7-56) 01/17/18 08:30 Alkaline Phosphatase 44 U/L (38-126) 01/17/18 08:30 Lactate Dehydrogenase 547 U/L (333-699) 01/16/18 06:00 Total Creatine Kinase 616 U/L (35-230) H 01/18/18 19:35 CK-MB (CK-2) < 0.2 ng/mL (0.0-3.6) 01/18/18 19:35 CK-MB (CK-2) % Cancelled 01/15/18 10:20 Troponin I < 0.01 ng/mL 01/16/18 06:00 Total Protein 5.7 g/dL (5.8-8.3) L 01/17/18 08:30 Albumin 3.1 g/dL (3.0-4.8) 01/17/18 08:30 Globulin 2.5 gm/dL 01/17/18 08:30 Albumin/Globulin Ratio 1.2 (1.1-1.8) 01/17/18 08:30 Urine Color Yellow (YELLOW) 01/15/18 10:20 Urine Appearance Clear (CLEAR) 01/15/18 10:20 Urine pH 6.5 (4.7-8.0) 01/15/18 10:20 Ur Specific [place] 1.015 (1.005-1.035) 01/15/18 10:20 Urine Protein Negative mg/dL (<30 mg/dL) 01/15/18 10:20 Urine Glucose (UA) Negative mg/dL (NEGATIVE) 01/15/18 10:20 Urine Ketones Trace mg/dL (NEGATIVE) H 01/15/18 10:20 Urine Blood Negative (NEGATIVE) 01/15/18 10:20 Urine Nitrate Negative (NEGATIVE) 01/15/18 10:20 Urine Bilirubin Negative (NEGATIVE) 01/15/18 10:20 Urine Urobilinogen 1.0 E.U./dL (<1 E.U./dL) H 01/15/18 10:20 Ur Leukocyte Esterase Negative Vern/uL (NEGATIVE) 01/15/18 10:20 Salicylates < 1 mg/dL (2.0-20.0) L 01/15/18 10:20 Urine Opiates Screen Negative (NEGATIVE) 01/15/18 10:20 Urine Methadone Screen Negative (NEGATIVE) 01/15/18 10:20 Acetaminophen < 10.0 ug/ml (10.0-20.0) L 01/15/18 10:20 Ur Barbiturates Screen Negative (NEGATIVE) 01/15/18 10:20 Ur Phencyclidine Scrn Negative (NEGATIVE) 01/15/18 10:20 Ur Amphetamines Screen Negative (NEGATIVE) 01/15/18 10:20 U Benzodiazepines Scrn Negative (NEGATIVE) 01/15/18 10:20 U Oth Cocaine Metabols Negative (NEGATIVE) 01/15/18 10:20 U Cannabinoids Screen Positive (NEGATIVE) H 01/15/18 10:20 - Hospital Course Hospital Course: Patient is a 22 year old male with past medical history that includes known paranoid schizophrenia andsubstance abuse who presented to [facility] in the custody of [facility] ([facility] for PES assessment due to bizarre behavior. Patient was noted to be agitated and non cooperative with questioning and physical exam upon arrival. Labs were drawn on the patient. UDS showed positive for THC, blood work showed an elevated CPK >4500 with preserved renal function and normal electrolytes. The patient was admitted and treated for rhabdomyolysis. IV fluids were started and patient CPK trended. Over course of stay CPK trended downward and his renal function remained intact. Psychiatry was consulted and evaluated the patient. Patient was evaluated by PES for involuntary admission to psychiatry unit. Patient did not meet criteria and was medically cleared for discharge with normal renal function and improved CPK levels on most recent imaging. During stay patient had refused lab draws on multiple occasions. He showed clinical improvement throughout his stay and was discharged outpatient. Discharge planning, medication reconciliation, tobacco cessation education, THC cessation education was provided to patient. Patient was understanding and agreeable to information provided. - Date & Time of H&P Date of H&P: 01/15/18 Time of H&P: 12:51 Discharge Exam - Head Exam Head Exam: ATRAUMATIC, NORMAL INSPECTION, NORMOCEPHALIC - Additional Findings Additional findings: Patient refusing physical exam Discharge Plan - Discharge Medications Prescriptions: Benztropine [Cogentin] 1 mg PO BID #30 tab Divalproex [Depakote DR(*BID*)] 500 mg PO BID #30 tcp LORazepam [Ativan] 1 mg PO BID #30 tab OLANZapine [Zyprexa Zydis] 5 mg PO TID #45 odt - Follow Up Plan Condition: STABLE Disposition: RELEASED IN [employer] CUSTODY Instructions: Rhabdomyolysis, Cocaine Use Disorder, Polysubstance Abuse Additional Instructions: Take medications as prescribed to you Continue oral hydration Referrals: PCP,NO [Primary Care Provider] - <Spike Martinez - Last Filed: 01/20/18 13:14> Provider - Provider Date of Admission: 04/15/18 16:27 Attending physician: Spike Martinez MD Primary care physician: NO PRIMARY CARE PROVIDER Hospital Course - Lab Results Lab Results: Most Recent Lab Values WBC 4.7 10^3/ul (4.5-11.0) 01/17/18 08:30 RBC 3.52 10^6/uL (3.5-6.1) 01/17/18 08:30 Hgb 11.3 g/dL (14.0-18.0) L 01/17/18 08:30 Hct 32.6 % (42.0-52.0) L 01/17/18 08:30 MCV 92.6 fl (80.0-105.0) 01/17/18 08:30 MCH 32.1 pg (25.0-35.0) 01/17/18 08:30 MCHC 34.7 g/dl (31.0-37.0) 01/17/18 08:30 RDW 12.2 % (11.5-14.5) 01/17/18 08:30 Plt Count 229 10^3/uL (120.0-450.0) 01/17/18 08:30 MPV 9.1 fl (7.0-11.0) 01/17/18 08:30 Gran % 33.7 % (50.0-68.0) L 01/16/18 06:00 Lymph % (Auto) 51.2 % (22.0-35.0) H 01/16/18 06:00 [place] % (Auto) 11.9 % (1.0-6.0) H 01/16/18 06:00 Eos % (Auto) 3.0 % (1.5-5.0) 01/16/18 06:00 Baso % (Auto) 0.2 % (0.0-3.0) 01/16/18 06:00 Gran # 1.44 (1.4-6.5) 01/16/18 06:00 Lymph # (Auto) 2.2 (1.2-3.4) 01/16/18 06:00 [place] # (Auto) 0.5 (0.1-0.6) 01/16/18 06:00 Eos # (Auto) 0.1 (0.0-0.7) 01/16/18 06:00 Baso # (Auto) 0.01 K/mm3 (0.0-2.0) 01/16/18 06:00 Sodium 143 mmol/L (132-148) 01/17/18 08:30 Potassium 3.8 mmol/L (3.6-5.0) 01/17/18 08:30 Chloride 112 mmol/L (98-107) H 01/17/18 08:30 Carbon Dioxide 23 mmol/L (21-33) 01/17/18 08:30 Anion Gap 11 (10-20) 01/17/18 08:30 BUN 7 mg/dL (7-21) 01/17/18 08:30 Creatinine 0.8 mg/dl (0.8-1.5) 01/17/18 08:30 Est GFR ( Amer) > 60 01/17/18 08:30 Est GFR (Non-Af Amer) > 60 01/17/18 08:30 Random Glucose 94 mg/dL (70-110) 01/17/18 08:30 Calcium 8.6 mg/dL (8.4-10.5) 01/17/18 08:30 Phosphorus 3.4 mg/dL (2.5-4.5) 01/16/18 06:00 Magnesium 1.8 mg/dL (1.7-2.2) 01/16/18 06:00 Total Bilirubin 0.3 mg/dL (0.2-1.3) 01/17/18 08:30 AST 32 U/L (17-59) 01/17/18 08:30 ALT 27 U/L (7-56) 01/17/18 08:30 Alkaline Phosphatase 44 U/L (38-126) 01/17/18 08:30 Lactate Dehydrogenase 547 U/L (333-699) 01/16/18 06:00 Total Creatine Kinase 616 U/L (35-230) H 01/18/18 19:35 CK-MB (CK-2) < 0.2 ng/mL (0.0-3.6) 01/18/18 19:35 CK-MB (CK-2) % Cancelled 01/15/18 10:20 Troponin I < 0.01 ng/mL 01/16/18 06:00 Total Protein 5.7 g/dL (5.8-8.3) L 01/17/18 08:30 Albumin 3.1 g/dL (3.0-4.8) 01/17/18 08:30 Globulin 2.5 gm/dL 01/17/18 08:30 Albumin/Globulin Ratio 1.2 (1.1-1.8) 01/17/18 08:30 Urine Color Yellow (YELLOW) 01/15/18 10:20 Urine Appearance Clear (CLEAR) 01/15/18 10:20 Urine pH 6.5 (4.7-8.0) 01/15/18 10:20 Ur Specific [place] 1.015 (1.005-1.035) 01/15/18 10:20 Urine Protein Negative mg/dL (<30 mg/dL) 01/15/18 10:20 Urine Glucose (UA) Negative mg/dL (NEGATIVE) 01/15/18 10:20 Urine Ketones Trace mg/dL (NEGATIVE) H 01/15/18 10:20 Urine Blood Negative (NEGATIVE) 01/15/18 10:20 Urine Nitrate Negative (NEGATIVE) 01/15/18 10:20 Urine Bilirubin Negative (NEGATIVE) 01/15/18 10:20 Urine Urobilinogen 1.0 E.U./dL (<1 E.U./dL) H 01/15/18 10:20 Ur Leukocyte Esterase Negative Vern/uL (NEGATIVE) 01/15/18 10:20 Salicylates < 1 mg/dL (2.0-20.0) L 01/15/18 10:20 Urine Opiates Screen Negative (NEGATIVE) 01/15/18 10:20 Urine Methadone Screen Negative (NEGATIVE) 01/15/18 10:20 Acetaminophen < 10.0 ug/ml (10.0-20.0) L 01/15/18 10:20 Ur Barbiturates Screen Negative (NEGATIVE) 01/15/18 10:20 Ur Phencyclidine Scrn Negative (NEGATIVE) 01/15/18 10:20 Ur Amphetamines Screen Negative (NEGATIVE) 01/15/18 10:20 U Benzodiazepines Scrn Negative (NEGATIVE) 01/15/18 10:20 U Oth Cocaine Metabols Negative (NEGATIVE) 01/15/18 10:20 U Cannabinoids Screen Positive (NEGATIVE) H 01/15/18 10:20 Attending/Attestation - Attestation I have personally seen and examined this patient.: Yes I have fully participated in the care of the patient.: Yes I have reviewed all pertinent clinical information, including history, physical exam and plan: Yes Notes (Text): 01/20/18 13:11 Medical record note made by the resident after discussion with my direction and input after the patient was personally seen and examined by me. I have reviewed the chart and agree that the record accurately reflects by personal performance of the history, physical exam, data review, and medical decision-making, in the course for the patient. I have also personally directed the plan of care. 22 years old male with PMH of Paranoid Schizophrenia and substance abuse who was brought in by [place] [employer] for PES assessment due to bizarre behavior was found to have rhabdomyolysis.CK level has improved. coming .Renal functions are stable.Patient was evaluated by [facility] Psychiatry as well Psychiatry here and was cleared for discharge .Patient will be discharged and will follow up with pcp and Psychiatry at correction facility. DISCHARGE DIAGNOSIS Rhabdomyolysis Paranoid Schizophrenia .
== END 2018-01-19 11:59 | DRG 558 ==
LOC: ED 09:59 → ERH 11:35 → 5RNO 14:14 → OBSVTOIN 01-16 16:27
PROVIDERS: ADMIT Internal Medicine; ATTEND Internal Medicine
DX: M62.82 Rhabdomyolysis (principal); F20.0 Paranoid schizophrenia; F11.20 Opioid dependence, uncomplicated; F14.20 Cocaine dependence, uncomplicated; F12.20 Cannabis dependence, uncomplicated; E86.0 Dehydration; Z91.14 Patient's other noncompliance with medication regimen; Z78.1 Physical restraint status